=== PATIENT | male | born 1980 | race African-American/Black ===

== ENCOUNTER 2023-07-20 10:48 | Inpatient (IN) | payer OTHER ==
[2023-07-20 12:25] LABS: BASO % 0.4 % (0-2.0); EOS % 1.6 % (0-4.5); HEMATOCRIT 46.6 % (35.4-49); HEMOGLOBIN 15.5 GM/dL (11.7-16.9); MCH 29.3 pg (25.7-33.7); MCHC 33.2 g/dl (32.0-35.9); MEAN CELL VOLUME 88.3 fl (80-96); MEAN PLT VOLUME 8.8 fl (7.5-11.1); PLATELET COUNT 198 10^3/uL (134-434); RBC 5.28 M/mm3 (4.00-5.60); RDW 15.8 % (11.9-15.9)
[2023-07-20 12:31] LABS: INR 1.04 (0.83-1.09); PROTHROMBIN TIME (PATIENT) 12.1 SEC (9.7-13.0)
[2023-07-20 12:41] LABS: CHLORIDE 102 mmol/L (98-107); POTASSIUM 3.7 mmol/L (3.5-5.1); SODIUM 136 mmol/L (136-145)
[2023-07-20 12:48] LABS: CALCIUM 8.9 mg/dL (8.5-10.1)
[2023-07-20 12:50] LABS: ALBUMIN 3.6 g/dl (3.4-5.0); ALK PHOS 131 U/L (45-117); ANION GAP 5 mmol/L (4-13); BLOOD UREA NITROGEN 50.2 mg/dL (7-18); CO2 29 mmol/L (21-32); GLUCOSE,RANDOM 101 mg/dL (74-106); SGPT/ALT 31 U/L (13-61)
[2023-07-20 12:52] LABS: CREATININE 3.5 mg/dL (0.55-1.3); SGOT/AST 31 U/L (15-37)
[2023-07-20] MEDS ORDERED: PIPERACILLIN/TAZOB 4.5 GM 4.5 GM/100 ML BAG IVPB ONE (12:52)
[2023-07-20 12:54] LABS: TOT PROT 8.1 g/dl (6.4-8.2)
[2023-07-20] MEDS: PIPERACILLIN/TAZOB 4.5 GM 4.5 GM in DEXTROSE 5%-WATER - 100 ML IVPB ONE (12:58)
[2023-07-20 13:06] LABS: ERYTHROCYTE SEDIMENTATION RATE 7 mm/hr (0-10)
[2023-07-20] MEDS ORDERED: VANCOMYCIN 1 GRAM (PRE-DOCKED) 1,000 MG/250 ML BAG IVPB ONE (13:21)
[2023-07-20] MEDS: VANCOMYCIN 1,000 MG in DEXTROSE 5%-WATER - 250 ML IVPB ONE (13:31)
[2023-07-20] MEDS ORDERED: hydrALAZINE HCL 25 MG TABLET (FP) ONE (16:28)
[2023-07-20] MEDS: hydrALAZINE HCL 25 MG TABLET (FP) PO SCH (16:36)
[2023-07-20 19:38] VITALS: BMI 28.3
[2023-07-20] MEDS: LABETALOL HCL 100 MG TABLET (FP) PO SCH (21:27)
[2023-07-20] MEDS: HEPARIN NA (PORCINE) 5,000 UNITS/ML 1ML VIAL SQ SCH (21:27)
[2023-07-20] MEDS: ATORVASTATIN CA 40 MG TABLET (FP) PO SCH (21:27)
[2023-07-20] MEDS: INSULIN ASPART SLIDING SCALE (NOVOLOG) 1 VIAL SQ SCH (21:44)
[2023-07-20] MEDS: VANCOMYCIN PREMIX 1.5 GM 1,500 MG/300 ML BAG IVPB SCH (22:22)
[2023-07-21 09:12] LABS: INR 1.04 (0.83-1.09); PROTHROMBIN TIME (PATIENT) 12.1 SEC (9.7-13.0)
[2023-07-21 09:13] LABS: BASO % 0.7 % (0-2.0); EOS % 3.6 % (0-4.5); HEMATOCRIT 44.4 % (35.4-49); HEMOGLOBIN 14.6 GM/dL (11.7-16.9); LYMPH % 14.5 % (8-40); MCH 29.1 pg (25.7-33.7); MCHC 32.9 g/dl (32.0-35.9); MEAN CELL VOLUME 88.3 fl (80-96); MEAN PLT VOLUME 9.1 fl (7.5-11.1); MONO % 9.1 % (3.8-10.2); NEUT % 72.1 % (42.8-82.8); PLATELET COUNT 183 10^3/uL (134-434); RBC 5.02 M/mm3 (4.00-5.60); RDW 16.2 % (11.9-15.9); WHITE BLOOD COUNT 4.1 K/mm3 (4.0-10.0)
[2023-07-21 09:28] LABS: POTASSIUM 3.8 mmol/L (3.5-5.1)
[2023-07-21 09:31] LABS: CALCIUM 8.4 mg/dL (8.5-10.1)
[2023-07-21 09:32] LABS: ALBUMIN 3.2 g/dl (3.4-5.0); BLOOD UREA NITROGEN 46.8 mg/dL (7-18)
[2023-07-21 09:36] LABS: BILIRUBIN,TOTAL 0.9 mg/dL (0.2-1); TOT PROT 7.3 g/dl (6.4-8.2)
[2023-07-21] MEDS ORDERED: PATIENT'S OWN MEDICATION (NON-FORMULARY) (Amlodipine Bes/Olmesartan Med [Amlodipine-Olmesa PO SCH (10:00)
[2023-07-21] MEDS: LACTOBACILLUS ACIDOPHILUS 1 TABLET PO SCH (10:54)
[2023-07-21] MEDS: amLODIPine BESYLATE 10 MG TABLET (FP) PO SCH (10:54)
[2023-07-21] MEDS: MULTIVITAMINS (DAILY MVI) TABLET (FP) PO SCH (10:54)
[2023-07-21] MEDS: PIPERACILLIN/TAZOB 3.375 GM 3.375 GM in DEXTROSE 5%-WATER - 50 ML IVPB SCH (21:26)
[2023-07-22] MEDS: PIPERACILLIN/TAZOB 3.375 GM 3.375 GM in DEXTROSE 5%-WATER - 50 ML IVPB SCH (03:23)
[2023-07-22 10:02] LABS: POTASSIUM 3.8 mmol/L (3.5-5.1)
[2023-07-22 10:13] LABS: BILIRUBIN,TOTAL 0.9 mg/dL (0.2-1)
[2023-07-22 10:14] LABS: TOT PROT 7.2 g/dl (6.4-8.2)
[2023-07-22 10:17] LABS: ALBUMIN 3.1 g/dl (3.4-5.0); BLOOD UREA NITROGEN 39.1 mg/dL (7-18); CALCIUM 9.1 mg/dL (8.5-10.1)
[2023-07-22 10:19] LABS: CREATININE 2.9 mg/dL (0.55-1.3)
[2023-07-22] MEDS: VANCOMYCIN PREMIX 1.5 GM 1,500 MG/300 ML BAG IVPB SCH (11:08)
[2023-07-22 14:20] VITALS: RESP 18
[2023-07-23] MEDS: diphenhydrAMINE HCL 25 MG CAPSULE (FP) PO ONE (22:44)
[2023-07-24 07:20] LABS: POTASSIUM 3.8 mmol/L (3.5-5.1)
[2023-07-24 07:24] LABS: CALCIUM 8.6 mg/dL (8.5-10.1)
[2023-07-24 07:26] LABS: CREATININE 3.1 mg/dL (0.55-1.3)
[2023-07-24 07:29] LABS: BILIRUBIN,TOTAL 0.7 mg/dL (0.2-1); TOT PROT 6.8 g/dl (6.4-8.2)
[2023-07-25 14:18] VITALS: BP 172/97; PULSE 83; TEMP 98.4
== END 2023-07-25 17:37 | disposition home health service (06) | DRG 197 ==
LOC: JER 10:48 → JERBED 13:36 → J6S 18:11
PROVIDERS: ADMIT Internal Medicine; ATTEND Family Medicine
PROC: 0HDMXZZ Extraction of Right Foot Skin, External Approach (ICD-10-PCS; principal; 2023-07-21)
DX: E11.52 Type 2 diabetes mellitus with diabetic peripheral angiopathy with gangrene (principal); L03.115 Cellulitis of right lower limb; E11.40 Type 2 diabetes mellitus with diabetic neuropathy, unspecified; E11.22 Type 2 diabetes mellitus with diabetic chronic kidney disease; I12.9 Hypertensive chronic kidney disease with stage 1 through stage 4 chronic kidney disease, or unspecified chronic kidney disease; N18.9 Chronic kidney disease, unspecified; M79.5 Residual foreign body in soft tissue; Z89.421 Acquired absence of other right toe(s)
CPT/HCPCS: 0241U-QW; 36415; 71046-TC-FY; 73610-TC-RT-FY; 73630-TC-RT-FY; 73718-TC-RT; 76775-TC; 80048; 80053; 82962; 84443; 85025; 85610; 85651; 85730; 86140; 87040; 93005; 93010; 99285-25; G0480; J1644